=== PATIENT | female | born 1995 | race Hispanic/Latino ===

== ENCOUNTER 2020-10-06 11:23 | Day surgery (SDC) | payer OTHER, MEDICAID ==
[2020-10-06] MEDS ORDERED: hydrALAZINE 20 MG/ML VIAL SLOW IVP PRN (12:31)
== END 2020-10-06 14:28 | disposition home or self-care (01) ==
LOC: CSHLD/OP 11:23
PROVIDERS: ATTEND Obstetrics & Gynecology
DX: O46.93 Antepartum hemorrhage, unspecified, third trimester (principal); O99.891 Other specified diseases and conditions complicating pregnancy; R10.2 Pelvic and perineal pain; M25.559 Pain in unspecified hip; O09.213 Supervision of pregnancy with history of pre-term labor, third trimester; O34.211 Maternal care for low transverse scar from previous cesarean delivery; Z3A.31 31 weeks gestation of pregnancy
CPT/HCPCS: 76815; 99283

== ENCOUNTER 2020-10-15 14:29 | Day surgery (SDC) | payer OTHER, SELFPAY ==
[2020-10-15] MEDS ORDERED: hydrALAZINE 20 MG/ML VIAL SLOW IVP PRN (15:13)
[2020-10-15 15:15] VITALS: BMI 39.1
[2020-10-15 16:33] LABS: Fetal Fibronectin POSITIVE (Negative)
[2020-10-15 16:34] LABS: FFN Internal QC Analyzer PASS (PASS); FFN Internal QC Cassette PASS (PASS)
== END 2020-10-15 17:11 | disposition home or self-care (01) ==
LOC: CSHLD/OP 14:29
PROVIDERS: ATTEND Obstetrics & Gynecology
DX: O99.891 Other specified diseases and conditions complicating pregnancy (principal); O98.313 Other infections with a predominantly sexual mode of transmission complicating pregnancy, third trimester; O99.213 Obesity complicating pregnancy, third trimester; O24.313 Unspecified pre-existing diabetes mellitus in pregnancy, third trimester; O34.211 Maternal care for low transverse scar from previous cesarean delivery; R10.30 Lower abdominal pain, unspecified; M54.5 Low back pain; A59.9 Trichomoniasis, unspecified; E11.9 Type 2 diabetes mellitus without complications; N85.8 Other specified noninflammatory disorders of uterus; Z3A.32 32 weeks gestation of pregnancy; Z79.84 Long term (current) use of oral hypoglycemic drugs
CPT/HCPCS: 82731; 99283

== ENCOUNTER 2021-10-14 08:44 | Day surgery (SDC) | payer MEDICAID, OTHER ==
[2021-10-14] MEDS ORDERED: hydrALAZINE 20 MG/ML VIAL SLOW IVP PRN (10:28)
== END 2021-10-14 11:00 | disposition home or self-care (01) ==
LOC: CSHLD/OP 08:44
PROVIDERS: ATTEND Obstetrics & Gynecology
DX: O60.03 Preterm labor without delivery, third trimester (principal); Z3A.35 35 weeks gestation of pregnancy; O46.93 Antepartum hemorrhage, unspecified, third trimester; O24.113 Pre-existing type 2 diabetes mellitus, in pregnancy, third trimester; O99.891 Other specified diseases and conditions complicating pregnancy; N88.8 Other specified noninflammatory disorders of cervix uteri; O99.213 Obesity complicating pregnancy, third trimester; E66.9 Obesity, unspecified; Z68.34 Body mass index [BMI] 34.0-34.9, adult; Z79.82 Long term (current) use of aspirin; Z79.84 Long term (current) use of oral hypoglycemic drugs; Z79.899 Other long term (current) drug therapy; Z98.890 Other specified postprocedural states
CPT/HCPCS: 36416; 99283

== ENCOUNTER 2021-10-14 20:25 | Inpatient (IN) | payer MEDICAID, OTHER ==
[2021-10-14] MEDS ORDERED: Ibuprofen 800 MG TAB PO PRN (21:02)
[2021-10-14] MEDS ORDERED: Carboprost 250 MCG/ML AMP IM PRN (21:02)
[2021-10-14] MEDS ORDERED: Promethazine HCl 25 MG/ML VIAL IM PRN ×2 (21:02→23:48)
[2021-10-14] MEDS ORDERED: Docusate 100 MG CAP PO PRN (21:02)
[2021-10-14] MEDS ORDERED: Misoprostol 200 MCG TAB PR PRN (21:02)
[2021-10-14] MEDS ORDERED: Ondansetron PF 4 MG/2 ML Vial IVP PRN ×2 (21:02→23:48)
[2021-10-14] MEDS ORDERED: Lidocaine 1% (PF) 30 ML VIAL SC PRN (21:02)
[2021-10-14] MEDS ORDERED: hydrALAZINE 20 MG/ML VIAL SLOW IVP PRN ×2 (21:02→23:48)
[2021-10-14] MEDS ORDERED: NS w/ Oxytocin 30 units 500 ML ONE (21:08)
[2021-10-14] MEDS ORDERED: Lidocaine 1% (PF) 30 ML VIAL ONE (21:08)
[2021-10-14] MEDS ORDERED: Penicillin G Potassium 5 MILL.UNITS VIAL ONE (21:08)
[2021-10-14 21:12] LABS: Hemoglobin 11.8 g/dL (12.0-15.5); Mean Corpuscular HGB CONC 33.7 g/dL (32.0-36.0); Mean Corpuscular Hemoglobin 29.7 pg (27.0-33.0); Mean Corpuscular Volume 88.2 fl (81.6-98.3); Mean Platelet Volume 11.7 fl (7.4-10.4); Platelet Count 284 10x3/uL (150-450); Red Blood Cell (RBC) Count 3.97 10x6/uL (3.90-5.03); White Blood Cell (WBC) Count 11.1 10x3/uL (3.5-10.5)
[2021-10-14] MEDS ORDERED: Penicillin G Potassium 5 MILL.UNITS in Sodium Chloride 0.9% 100 ML IVPB SCH (21:15)
[2021-10-14] MEDS ORDERED: Fentanyl 2 mcg/Bup 0.1% Cadd 100 ML ONE (21:37)
[2021-10-14 21:45] LABS: Syphilis Antibody Nonreactive (Nonreactive); Syphilis Antibody Index 0.04 S/CO (<1.00 Non-Reactive)
[2021-10-14 21:46] LABS: HBSAg Index 0.15 S/CO (0-0.99); Hep B Surf Ag Non-Reactive S/CO (NonReactive)
[2021-10-14] MEDS: NS w/ Oxytocin 30 units 500 ML IV SCH ×2 (21:55→22:32)
[2021-10-14] MEDS ORDERED: Lactated Ringer's 1,000 ML IV SCH (22:00)
[2021-10-14] MEDS ORDERED: NS w/ Oxytocin 30 units 500 ML IV SCH (22:00)
[2021-10-14] MEDS ORDERED: Misoprostol 200 MCG TAB VAG PRN (23:48)
[2021-10-14] MEDS ORDERED: Preparation H Ointment 28 GM TUBE PR PRN (23:48)
[2021-10-14] MEDS ORDERED: Milk Of Magnesia 30 ML UDCUP PO PRN (23:48)
[2021-10-14] MEDS ORDERED: Dextrose 5% in Water 1,000 ML IV PRN (23:48)
[2021-10-14] MEDS ORDERED: Dextrose 50% Abboject 50 ML SYRINGE SLOW IVP PRN (23:48)
[2021-10-14] MEDS ORDERED: HumaLOG 300 UNITS/3 ML VIAL SC PRN ×2 (23:48)
[2021-10-14] MEDS ORDERED: Boostrix 0.5 ML (Tdap) VIAL IM ONE (23:48)
[2021-10-14] MEDS ORDERED: Bisacodyl 10 MG SUPP PR PRN (23:48)
[2021-10-14] MEDS ORDERED: Lanolin Ointment 7 GM TUBE TOP PRN (23:48)
[2021-10-14] MEDS ORDERED: Benzocaine-Menthol 82.5 ML CAN TOP PRN (23:48)
[2021-10-14] MEDS ORDERED: Methylergonovine 0.2 MG/ML VIAL IM PRN (23:48)
[2021-10-15] MEDS ORDERED: NS w/ Oxytocin 30 units 500 ML IV SCH (00:15)
[2021-10-15] MEDS ORDERED: Penicillin G 2.5 MILL.units 2.5 MILL.UNITS in Premix Bag 1 BAG IVPB SCH (01:00)
[2021-10-15] MEDS ORDERED: Ibuprofen 800 MG TAB PO SCH (01:00)
[2021-10-15] MEDS: Acetaminophen 325 MG TAB PO SCH ×4 (01:05→20:35)
[2021-10-15 03:37] LABS: SARS-CoV-2 NAA Rapid Test Not Detected (NotDetected)
[2021-10-15 05:43] LABS: Hemoglobin 10.7 g/dL (12.0-15.5)
[2021-10-15] MEDS: Ibuprofen 800 MG TAB PO SCH ×3 (06:34→21:03)
[2021-10-15] MEDS: Ferrous Sulfate 325 MG TAB PO SCH ×2 (08:26→16:47)
[2021-10-15] MEDS: Prenatal Vitamin 1 TAB PO SCH (08:32)
[2021-10-15] MEDS: Docusate 100 MG CAP PO SCH ×2 (08:32→21:03)
[2021-10-15] MEDS ORDERED: metFORMIN 500 MG TAB PO SCH (21:00)
[2021-10-16] MEDS: Acetaminophen 325 MG TAB PO SCH ×3 (00:17→14:20)
[2021-10-16] MEDS: Ibuprofen 800 MG TAB PO SCH ×2 (06:05→14:19)
[2021-10-16] MEDS: Ferrous Sulfate 325 MG TAB PO SCH ×2 (08:48→15:46)
[2021-10-16] MEDS: Prenatal Vitamin 1 TAB PO SCH (08:52)
[2021-10-16] MEDS: Docusate 100 MG CAP PO SCH (08:52)
[2021-10-16 11:52] VITALS: BP 113/53
[2021-10-16 14:50] VITALS: TEMP 98.4
== END 2021-10-16 17:45 | disposition home or self-care (01) | DRG 805 ==
LOC: CSHLD/OP 20:25 → CSHLD 20:57 → CSHPP 10-15 00:25
PROVIDERS: ADMIT Student in an Organized Health Care Education/Training Program; ATTEND Student in an Organized Health Care Education/Training Program
PROC: 10E0XZZ Delivery of Products of Conception, External Approach (ICD-10-PCS; principal; 2021-10-14)
DX: O60.14X0 Preterm labor third trimester with preterm delivery third trimester, not applicable or unspecified (principal); O24.12 Pre-existing type 2 diabetes mellitus, in childbirth; Z37.0 Single live birth; Z20.822 Contact with and (suspected) exposure to COVID-19; Z79.84 Long term (current) use of oral hypoglycemic drugs; E11.9 Type 2 diabetes mellitus without complications; E66.9 Obesity, unspecified; O99.214 Obesity complicating childbirth; O34.211 Maternal care for low transverse scar from previous cesarean delivery; Z3A.34 34 weeks gestation of pregnancy
CPT/HCPCS: 36415; 36416; 85014; 85018; 85027; 86780; 86850; 86900; 86901; 87340; 88307; 99285; J2001; J2540; J2590; J3490; U0002